=== PATIENT | female | born 1965 | race Caucasian/White ===

== ENCOUNTER 2018-07-06 07:51 | Day surgery (SDC) | payer OTHER ==
[~2018-07-06] VITALS: Ht 154.9 cm; Wt 61.2 kg
[~2018-07-06 07:51] MED LIST: ACET650T1; GEMF600T6 PO
[2018-07-06] MEDS ORDERED: BUPIVACAINE-MPF/EPI 0.25% 30 ML VIAL INJ ONE (09:47)
[2018-07-06] MEDS ORDERED: ONDANSETRON 4 MG/2 ML VIAL ONE (09:50)
[2018-07-06] MEDS ORDERED: ROCURONIUM 50 MG/5 ML VIAL IV ONE (09:50)
[2018-07-06] MEDS ORDERED: SEVOFLURANE 250 ML BTL INH ONE (09:50)
[2018-07-06] MEDS ORDERED: PROPOFOL 200 MG/20 ML VIAL IV ONE (09:50)
[2018-07-06] MEDS ORDERED: NEOSTIGMINE 1:1000 10 MG/10 ML VIAL ONE (09:50)
[2018-07-06] MEDS ORDERED: SUCCINYLCHOLINE CHLORIDE 200 MG/10 ML VIAL IVP ONE (09:50)
[2018-07-06] MEDS ORDERED: DEXAMETHASONE 4 MG/ML VIAL ONE (09:50)
[2018-07-06] MEDS ORDERED: GLYCOPYRROLATE 0.2 MG/ML VIAL ONE (09:50)
[2018-07-06] MEDS ORDERED: KETOROLAC 30 MG/ML VIAL ONE (09:50)
[2018-07-06] MEDS ORDERED: MEPERIDINE 50 MG/ML SYR ONE (09:51)
[2018-07-06] MEDS ORDERED: fentaNYL 0.05 MG/ML VIAL ONE (09:51)
[2018-07-06] MEDS ORDERED: MIDAZOLAM 2 MG/2 ML VIAL ONE (09:51)
[2018-07-06] MEDS ORDERED: LACTATED RINGERS 1,000 ML IV SCH (10:27)
[2018-07-06] MEDS ORDERED: MEPERIDINE 25 MG/ML SYR IVP PRN (10:30)
[2018-07-06] MEDS ORDERED: ONDANSETRON 4 MG/2 ML VIAL IVP PRN (10:30)
[2018-07-06] MEDS ORDERED: diphenhydrAMINE 50 MG/ML VIAL IVP PRN (10:30)
[2018-07-06] MEDS: HYDROmorphone 1 MG/ML AMP IVP PRN ×2 (11:40→11:50)
[2018-07-06] MEDS ORDERED: HYDROmorphone PFS 2 MG/ML SYR ONE (11:44)
[2018-07-06] MEDS ORDERED: MORPHINE SULFATE 2 MG/ML SYR IVP PRN (12:35)
[2018-07-06] MEDS ORDERED: ACETAMINOPHEN 325 MG TAB PO PRN (12:35)
[2018-07-06] MEDS ORDERED: ONDANSETRON 4 MG/2 ML VIAL IV PRN (12:35)
[2018-07-06] MEDS ORDERED: MORPHINE SULFATE 4 MG/ML SYR IV PRN (12:35)
[2018-07-06] MEDS ORDERED: HYDROcodone/APAP 5/325 MG 1 TAB TAB PO PRN (12:35)
[2018-07-06] MEDS ORDERED: HYDROmorphone 1 MG/ML AMP IVP PRN (12:35)
== END 2018-07-06 14:35 | disposition home or self-care (01) ==
LOC: MDS 07:51 → MMU 07:52 → MDS 14:35
PROVIDERS: ATTEND Surgery
DX: K80.10 Calculus of gallbladder with chronic cholecystitis without obstruction (principal); K21.9 Gastro-esophageal reflux disease without esophagitis; Z98.890 Other specified postprocedural states; Z79.899 Other long term (current) drug therapy; Z88.1 Allergy status to other antibiotic agents; Z90.49 Acquired absence of other specified parts of digestive tract
CPT/HCPCS: 36415; 47562; 71045; 81025; 82374; 86886; 86900; 86901; 88304; 93005; C1887; J0330; J0690; J1100; J1170; J1885; J2250; J2405; J2704; J2710; J3010; J3490; J7030; J7060; J7120; J2175

== ENCOUNTER 2018-07-06 21:01 | Emergency (ER) | payer OTHER ==
[~2018-07-06] VITALS: Ht 154.9 cm; Wt 61.2 kg
--- NOTE | 2018-07-06 21:13 | NUR ---
PT WHEELCHAIR TO ER BED 4.
[2018-07-06 21:15] VITALS: BP 156/89
--- NOTE | 2018-07-06 21:23 | NUR ---
52/F CAME IN WITH , S/P LAPAROSCOPIC CHOLECYSTECTOMY, WAS DISCHARGED TODAY AT 1500. PT REPORTS 10/10 CONSTANT PAIN ON INCISION SITES. PT REPORTS NOT BEING ABLE TO HOUSING [employer] ANALY[employer] RX PAIN MEDS DUE TO INSURANCE PROBLEMS. AOX4, AMBULATORY, PT APPEARS IN MODERATE DISTRESS OF PAIN. LUNG SOUNDS CLEAR BL. BS HYPOACTIVE X4, ABD SOFT ROUND TENDER TO TOUCH. 4 INCISIONS NOTED WITH SHIELA, SKIN APPEARS APPROXIMATED, NO REDNESS OR SWELLING. HX GERD, DIVERTICULITIS
[2018-07-06] MEDS ORDERED: ONDANSETRON 4 MG ODT PO ONE (21:45)
[2018-07-06] MEDS ORDERED: MORPHINE SULFATE 4 MG/ML SYR IM ONE (21:45)
[2018-07-06] MEDS ORDERED: HYDROcodone/APAP 5/325 MG 1 TAB TAB PO ONE (21:45)
[2018-07-06] MEDS ORDERED: MORPHINE SULFATE 2 MG/ML SYR ONE (22:19)
[2018-07-06 22:52] VITALS: BP 124/76
--- NOTE | 2018-07-06 22:52 | NUR ---
Patient discharged with v/s stable. Written and verbal after care instructions given and explained. Patient alert, oriented and verbalized understanding of instructions. Ambulatory with steady gait. All questions addressed prior to discharge. ID band removed. Patient advised to follow up with PMD. Rx of SARAH APARICIO given. Patient educated on indication of medication including possible reaction and side effects. Opportunity to ask questions provided and answered.
== END 2018-07-06 22:52 | disposition home or self-care (01) ==
LOC: MED 21:01
DX: G89.18 Other acute postprocedural pain (principal); R10.11 Right upper quadrant pain; K21.9 Gastro-esophageal reflux disease without esophagitis; Z90.49 Acquired absence of other specified parts of digestive tract; Z88.1 Allergy status to other antibiotic agents; Z79.899 Other long term (current) drug therapy
CPT/HCPCS: 96372; 99283; J2270; Q0162

== ENCOUNTER 2018-07-08 11:26 | Emergency (ER) | payer OTHER ==
[~2018-07-08] VITALS: Ht 154.9 cm; Wt 61.2 kg
[2018-07-08 11:38] VITALS: BP 107/71
--- NOTE | 2018-07-08 11:40 | NUR ---
PT WC'D TO BED 3
--- NOTE | 2018-07-08 11:45 | NUR ---
PT C/O 05/12 ABD PAIN S/P CHOLECYSTECTOMY ON THURSDAY HERE. DENIES NVD/CP/SOB. PT WAS RX NORCO, TAKEN LAST TODAY AT 9AM. VSS; PATIENT POSITIONED FOR COMFORT; HOB ELEVATED; BEDRAILS UP X1; BED DOWN. ER MD MADE AWARE OF PT STATUS.
[2018-07-08] MEDS ORDERED: MORPHINE SULFATE 4 MG/ML SYR IVP ONE ×2 (11:55→15:00)
[2018-07-08] MEDS ORDERED: MORPHINE SULFATE 4 MG/ML SYR IM ONE (11:55)
[2018-07-08] MEDS ORDERED: NACL 0.9% 1,000 ML IV SCH (13:36)
[2018-07-08 13:54] LABS: BASOPHILS # (AUTO) 0.1 K/uL (0.00-0.22); BASOPHILS % (AUTO) 0.7 % (0.0-2.0); EOSINOPHILS # (AUTO) 0.2 K/uL (0-0.4); EOSINOPHILS % (AUTO) 1.6 % (0.0-4.0); HEMATOCRIT 40.6 % (36-48); HEMOGLOBIN 13.5 g/dL (12.0-16.0); LYMPHOCYTES # (AUTO) 2.9 K/uL (2.5-16.5); LYMPHOCYTES % (AUTO) 30.6 % (20.5-51.1); MEAN CORPUSCULAR HEMOGLOBIN 29 pg (27-31); MEAN CORPUSCULAR HGB CONC 33 g/dL (33-37); MEAN CORPUSCULAR VOLUME 88.9 fL (80-94); MONOCYTES # (AUTO) 0.7 K/uL (0.8-1.0); MONOCYTES % (AUTO) 7.6 % (1.7-9.3); NEUTROPHILS # (AUTO) 5.6 K/uL (1.8-7.7); NEUTROPHILS % (AUTO) 59.5 % (42.2-75.2); PLATELET COUNT (AUTO) 311 K/uL (140-450); RED BLOOD CELL COUNT(AUTO) 4.57 MIL/uL (4.20-5.40); RED CELL DISTRIBUTION WIDTH 14.8 % (11.6-13.7); WHITE BLOOD COUNT (AUTO) 9.5 K/uL (4.8-10.8)
[2018-07-08 14:12] LABS: ALBUMIN 3.7 g/dL (3.4-5.0); ANION GAP 12.4 (8-16); CARBON DIOXIDE 27.3 mmol/L (21-32); CREATININE 0.6 mg/dL (0.6-1.3); POTASSIUM 3.7 mmol/L (3.5-5.1); TOTAL BILIRUBIN 0.4 mg/dL (0.0-1.0)
[2018-07-08 16:26] VITALS: BP 107/71
== END 2018-07-08 16:27 | disposition home or self-care (01) ==
LOC: MED 11:26
DX: G89.18 Other acute postprocedural pain (principal); R10.11 Right upper quadrant pain; K21.9 Gastro-esophageal reflux disease without esophagitis; Z90.49 Acquired absence of other specified parts of digestive tract; Z79.899 Other long term (current) drug therapy; Z88.1 Allergy status to other antibiotic agents
CPT/HCPCS: 36415; 74177; 80053; 81002; 81025; 83690; 85025; 96374; 96376; 99284; J2270; J7030; Q9967; 96361

== ENCOUNTER 2018-09-08 18:26 | Emergency (ER) | payer OTHER ==
[~2018-09-08] VITALS: Ht 160 cm; Wt 59.0 kg
[2018-09-08 18:35] VITALS: BP 106/67
--- NOTE | 2018-09-08 18:42 | NUR ---
BIB SELF WITH C/O HEADACHE X 2 DAYS, 10/10 SEVERE VO PAIN, RADIATES FROM THE FRONT OF THE HEAD TO THE BACK AND EYES, + DIZZINESS, + BLURRY VISION, -V/D PMH: NONE RX: OMEPRAZOLE
--- NOTE | 2018-09-08 19:07 | NUR ---
ASSUMED CARE OF PT FROM BERNARD MATA
--- NOTE | 2018-09-08 19:09 | NUR ---
Pt report given to KARMA WAGNER. Transfer of care at this time.
--- NOTE | 2018-09-08 19:18 | NUR ---
PA EVALUATING PT
[2018-09-08] MEDS ORDERED: KETOROLAC 30 MG/ML VIAL IM ONE (19:25)
[2018-09-08 20:01] VITALS: BP 106/67
--- NOTE | 2018-09-08 20:02 | NUR ---
Patient discharged with v/s stable. Written and verbal after care instructions given and explained. Patient alert, oriented and verbalized understanding of instructions. Ambulatory with steady gait. All questions addressed prior to discharge. ID band removed. Patient advised to follow up with PMD. Rx of AMOXICILLIN, ACETAMINOPHEN given. Patient educated on indication of medication including possible reaction and side effects. Opportunity to ask questions provided and answered.
== END 2018-09-08 20:02 | disposition home or self-care (01) ==
LOC: MED 18:26
DX: J32.9 Chronic sinusitis, unspecified (principal); K21.9 Gastro-esophageal reflux disease without esophagitis; Z88.1 Allergy status to other antibiotic agents; Z79.899 Other long term (current) drug therapy
CPT/HCPCS: 81002; 81025; 96372; 99283; J1885

== ENCOUNTER 2019-05-13 23:19 | Emergency (ER) | payer OTHER ==
[~2019-05-13] VITALS: Ht 154.9 cm; Wt 63.5 kg
[2019-05-13 23:26] VITALS: BP 164/82
[2019-05-14 01:25] LABS: BASOPHILS # (AUTO) 0.1 K/uL (0.00-0.22); BASOPHILS % (AUTO) 0.9 % (0.0-2.0); EOSINOPHILS # (AUTO) 0.1 K/uL (0-0.4); EOSINOPHILS % (AUTO) 1.9 % (0.0-4.0); HEMATOCRIT 40.3 % (36-48); HEMOGLOBIN 13.5 g/dL (12.0-16.0); LYMPHOCYTES # (AUTO) 3.2 K/uL (2.5-16.5); LYMPHOCYTES % (AUTO) 48.9 % (20.5-51.1); MEAN CORPUSCULAR HEMOGLOBIN 28 pg (27-31); MEAN CORPUSCULAR HGB CONC 34 g/dL (33-37); MEAN CORPUSCULAR VOLUME 84.2 fL (80-94); MONOCYTES # (AUTO) 0.4 K/uL (0.8-1.0); MONOCYTES % (AUTO) 5.6 % (1.7-9.3); NEUTROPHILS # (AUTO) 2.8 K/uL (1.8-7.7); NEUTROPHILS % (AUTO) 42.7 % (42.2-75.2); PLATELET COUNT (AUTO) 325 K/uL (140-450); RED BLOOD CELL COUNT(AUTO) 4.78 MIL/uL (4.20-5.40); RED CELL DISTRIBUTION WIDTH 16.3 % (11.6-13.7); WHITE BLOOD COUNT (AUTO) 6.6 K/uL (4.8-10.8)
[2019-05-14] MEDS: NACL 0.9% 1,000 ML IV ONE (01:28)
[2019-05-14 01:40] LABS: ALBUMIN 3.6 g/dL (3.4-5.0); ANION GAP 11.8 (8-16); CARBON DIOXIDE 27.8 mmol/L (21-32); CREATININE 0.6 mg/dL (0.6-1.3); POTASSIUM 3.6 mmol/L (3.5-5.1); TOTAL BILIRUBIN 0.2 mg/dL (0.0-1.0)
[2019-05-14] MEDS ORDERED: ALUMINUM HYD/MAG/SIMETHICONE 30 ML UDC PO ONE (03:50)
[2019-05-14] MEDS ORDERED: MORPHINE SULFATE 4 MG/ML SYR IVP ONE (03:50)
[2019-05-14] MEDS: ALUMINUM HYD/MAG/SIMETHICONE 30 ML UDC PO ONE (04:33)
[2019-05-14] MEDS: MORPHINE SULFATE 4 MG/ML SYR IVP ONE (04:34)
[2019-05-14 04:46] VITALS: BP 160/81
== END 2019-05-14 04:45 | disposition home or self-care (01) ==
LOC: MED 23:19
DX: R10.13 Epigastric pain (principal); K21.9 Gastro-esophageal reflux disease without esophagitis; Z88.1 Allergy status to other antibiotic agents; Z79.899 Other long term (current) drug therapy
CPT/HCPCS: 36415; 74150; 80053; 81002; 81025; 83605; 83690; 84484; 85025; 85610; 85730; 96374; 99284; J2270; J7030